=== PATIENT | female | born 1965 | race Caucasian/White ===

== ENCOUNTER → 2017-10-17 | Emergency (ER) | payer BC, OTHER ==
[~2017-10-17] VITALS: Ht 162.6 cm; Wt 99.5 kg
[~2017-10-17] MED LIST: ACETAMINOPHEN 325 MG TAB PO ONE
== END | disposition home or self-care (01) ==
LOC: ER 12:35
DX: N39.0 Urinary tract infection, site not specified (principal); I10 Essential (primary) hypertension
CPT/HCPCS: 81003; 87086; 87186; 99283